=== PATIENT | female | born 1965 | race Caucasian/White ===

== ENCOUNTER → 2021-01-08 10:38 | Outpatient (BNVA) | payer OTHER, SELFPAY | PROVIDERS: PCP Internal Medicine; Visit Provider Physician Assistant | DX: S16.1XXA Strain of muscle, fascia and tendon at neck level, initial encounter (principal); S39.012A Strain of muscle, fascia and tendon of lower back, initial encounter; X58.XXXA Exposure to other specified factors, initial encounter | CPT/HCPCS: 99203 ==

== ENCOUNTER → 2021-01-14 10:01 | Outpatient (BNVA) | payer OTHER, SELFPAY | PROVIDERS: PCP Internal Medicine; Visit Provider Physician Assistant | DX: S16.1XXD Strain of muscle, fascia and tendon at neck level, subsequent encounter (principal); S39.012D Strain of muscle, fascia and tendon of lower back, subsequent encounter; X58.XXXD Exposure to other specified factors, subsequent encounter | CPT/HCPCS: 99213 ==

== ENCOUNTER 2021-09-26 21:01 | Emergency (ER) | payer OTHER, SELFPAY ==
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
[2021-09-26 22:13] VITALS: BP 130/91; PULSE 101; RESP 20; TEMP 36.5; O2SAT 98; BMI 25.0
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
[2021-09-27 00:30] VITALS: BP 119/74; PULSE 68; RESP 18; TEMP 36.6; O2SAT 100
[2021-09-27] MEDS: Ketorolac Tromethamine 30 MG/ML VIAL 15 MG IM (00:40)
== END 2021-09-27 04:11 | disposition home or self-care (01) ==
PROVIDERS: Emergency Provider Emergency Medicine Emergency Medical Services; PCP Internal Medicine
DX: S13.9XXA Sprain of joints and ligaments of unspecified parts of neck, initial encounter (principal); S33.5XXA Sprain of ligaments of lumbar spine, initial encounter; G44.309 Post-traumatic headache, unspecified, not intractable; M54.6 Pain in thoracic spine; M54.2 Cervicalgia; V43.52XA Car driver injured in collision with other type car in traffic accident, initial encounter; Y93.9 Activity, unspecified; Y92.410 Unspecified street and highway as the place of occurrence of the external cause; Y99.9 Unspecified external cause status; Z79.899 Other long term (current) drug therapy
CPT/HCPCS: 70450; 72125; 72128; 72131; 96372; 99283; 99284; J1885

== ENCOUNTER 2023-07-29 11:58 | Outpatient (AMB) | payer OTHER, SELFPAY ==
--- NOTE | 2023-07-29 12:51 | AM.OFFWIN_ITS ---
Intake Vital Signs 07/29/23 13:04 Height 5 ft 4 in Weight 135 lb BMI 23.2 BP 100/70 Blood Pressure Location Rt brachial Position Sitting Pulse 98 Pulse Source Pulse Oximeter Temp 97.1 F Temp Source Temporal Artery Scan Pulse Oximetry (%) 100 Oxygen Delivery Method Room Air Intake Visit Reasons: EP, sore throat, congestion (masked) Intake Note: Pt is here c/o chest congestion, body weakness, and on going headache. Patient Tobacco Use Status: Never used Tobacco Allergies No Known Allergies Allergy (Verified 07/29/23 13:01) Do you need a note to return to daycare/school/sports/work: No HPI HPI Comments History of Present Illness Details 58-year-old female History of diabetes and hypertension presents with fatigue, malaise, sore throat, myalgias, drycough, diffuse headache without vision changes or dizziness for the past few days. Headache feels like typical. No associated trauma. Denies chest pain, shortness of breath, nausea, vomiting, abdominal pain, fevers, chills. physical exam benign . Neurological assessment nonfocal this is likely viral illness versus viral pharyngitis versus COVID-19 vs bronchitis. No signs of retropharyngeal, peritonsillar abscess, threat to airway, epiglottitis, strep throat. Unlikely pneumonia, pulmonary embolism, ACS. headache likely secondary to viral illness, do not suspect encephalitis, meningitis, stroke. Plan supportive measures, COVID test. Educated patient on diagnosis and treatment plan, answered all question, patient verbalizes understanding. At this time patient will be discharged home, advised to return with new or worsening symptoms. Educated on worrisome signs and symptoms and when to return. At this time I feel comfortable discharge home. [facility] Medical History (Updated 09/28/21 @ 00:01 by Background Daosman) Diabetes Hypertension Review of Systems Const Details: Constitutional : No Weight loss, No Fever, No Chills, + Fatigue, +No Malaise ENT/Mouth : + sore throat, No Rhinorrhea Eyes: No Eye Pain, No Swelling, No Redness Cardiovascular : No Chest Pain, No SOB, No Dyspnea on Exertion, No Orthopnea, No Edema, No Palpitations Respiratory : No Cough, No Sputum, No Wheezing Gastrointestinal : No Nausea, No Vomiting, No Diarrhea, No Constipation, No abdominal Pain, No Hematochezia, No Melena Genitourinary : No Dysuria, No Urinary Frequency, No Hematuria, Musculoskeletal : No joint pain, + Myalgias, No Joint Swelling Skin : No Skin Lesions, No rash Neuro : No Weakness, No Numbness, No Dizziness, No Headache Psych : No Anxiety/Panic, No Depression All other systems reviewed and are negative All systems reviewed & are unremarkable except as noted in HPI and below Physical Exam Vital Signs: stable vital sign Appearance: Alert.? Oriented X3.? No acute distress.? Head: Normocephalic, atraumatic, no step-offs or deformities Eyes: Pupils equal, round and reactive to light.? Neck: Normal inspection.? Neck supple.? CVS: Normal heart rate and rhythm.? Pulses normal.? Respiratory: No respiratory distress.? Breath sounds normal.? Abdomen: Soft and nontender.? Skin: Skin warm and dry.? Normal skin color.? Normal skin turgor.? Extremities: No lower extremity edema.? No calf ttp. 5/5 strength to bilateral upper and lower extremities Neuro: Oriented X 3.? No motor deficit.? No sensory deficit. CN 2-12 intact Assessment & Plan Assessment & Plan (1) Viral illness: Code(s): B34.9 - Viral infection, unspecified Plan Take your medications as prescribed. If you were prescribed antibiotics today, it is important that you take your medication to their entirety, do not skip any doses, do not finish them early. Follow-up with your primary care provider this week. Return to the emergency department with new or worsening symptoms. Such as fevers, chills, chest pain, shortness of breath, nausea, vomiting, dizziness, headache, vision changes, lethargy In case of emergency call 911 Orders: Orders [facility] Covid-19 Ag Today B34.9 - Viral infection, unspecified Coding Level of Care Code Est Pt Level 3 (16400) Diagnoses Viral illness B34.9
[2023-07-29 13:04] VITALS: BP 100/70; PULSE 98; TEMP 36.2; O2SAT 100; BMI 23.2
== END 2023-07-29 13:25 | disposition home or self-care (01) ==
PROVIDERS: PCP Internal Medicine; Visit Provider Physician Assistant
DX: B34.9 Viral infection, unspecified (principal)
CPT/HCPCS: 99213

== ENCOUNTER 2023-07-29 13:10 | Outpatient (REF) | payer OTHER, SELFPAY ==
[2023-07-29 13:44] LABS: Binax Internal Control QC Valid; Binax Now Covid-19 Ag Negative (Negative); Binax Performed by: PAULP
== END 2023-07-29 13:11 | disposition home or self-care (01) ==
LOC: HO.HMGCLDS 13:10
PROVIDERS: Visit Provider Physician Assistant
DX: Z11.52 Encounter for screening for COVID-19 (principal)
CPT/HCPCS: 87811; C9803

== ENCOUNTER 2025-06-25 11:12 | Emergency (ER) | payer MEDICARE, OTHER, SELFPAY ==
--- NOTE | ~2025-06-25 | XR_ITS ---
EXAMINATION: XR SACRUM AND COCCYX CLINICAL INFORMATION: fall, tenderness COMPARISON: None available. TECHNIQUE: 2 views of the sacrum and 2 views of the coccyx were obtained. FINDINGS: There are no fractures. No bone, joint or soft tissue acute abnormality is demonstrated. Chronic degenerative irregularity is mild to moderate involving pubic symphysis joint. XR/XR sacrum coccyx min 2V IMPRESSION: Unremarkable examination. Electronically signed by: Dillon Huang MD 06/25/2025 12:44 PM EDT
--- NOTE | ~2025-06-25 | CT_ITS ---
EXAMINATION: CT CERVICAL SPINE WITHOUT CONTRAST CLINICAL INFORMATION: Fall with head trauma COMPARISON: None available. TECHNIQUE: Axial imaging was performed from the base of the skull through T2 without IV contrast. Coronal and sagittal reformatted images were generated from the original axial data set. ALARA: The examination used one or more of the following radiation dose reduction techniques: Automated exposure control, iterative reconstruction, and/or adjustment of mA and/or KV. DLP: 300 mGY*cm FINDINGS: There are degenerative changes with sclerosis of the dens and anterior atlas as well as marginal osteophytes. There is moderate disc space narrowing with endplate and uncovertebral osteophytes at C5-6 and C6-7. There is linear pyrophosphate deposition in the C6-7 disc. No fracture lines are identified. Soft tissues are unremarkable. CT/CT cervical spine wo IV con IMPRESSION: No acute fracture. Moderate degenerative disc disease at C5-6 and C6-7. Electronically signed by: Dillon Huang MD 06/25/2025 12:39 PM EDT
--- NOTE | ~2025-06-25 | CT_ITS ---
EXAMINATION: CT HEAD WITHOUT CONTRAST CLINICAL INFORMATION: Fall with head strike. COMPARISON: 09/27/2021 TECHNIQUE: Contiguous axial imaging was performed from the skull base to vertex without intravenous administration of contrast. This CT examination was performed using dose optimization techniques as appropriate, variously including the following: *Automated exposure control *Adjustment of mA and/or kV according to patient size (this includes techniques or standardized protocols for targeted exams where dose is matched to indication/reason for exam; i.e. extremities or head) *Use of iterative reconstruction technique FINDINGS: There is no evidence of intracranial hemorrhage or extra-axial fluid collection. There is no mass effect, or edema. No CT evidence of acute territorial infarct. Ventricles, sulci, and cisterns are normal in size and configuration for patient age. No hydrocephalus. No midline shift. Negative hyperdense MCA sign. Negative insular ribbon sign. Patchy periventricular and deep white matter hypoattenuation is consistent with mild small vessel ischemic changes. 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 Normal pituitary. Globes and orbital contents image normally. There are bilateral lens replacements. No extracranial soft tissue abnormalities. The paranasal sinuses, mastoid air cells, and tympanic cavities are normally aerated. No suspicious bony abnormalities. There are no acute fractures evident. CT/CT head/brain wo IV con IMPRESSION: No acute intracranial abnormality. Electronically signed by: Solitario Petersen MD 06/25/2025 12:38 PM EDT
[2025-06-25 11:41] VITALS: BP 118/58; PULSE 78; RESP 16; TEMP 36.3; O2SAT 96; BMI 23.5
--- NOTE | 2025-06-25 11:44 | ED.GENADULT ---
HPI - General Adult General Chief complaint: Fall Stated complaint: fall, head and back pain Related Data Home Medications ?Medication ?Instructions ?Recorded ?Confirmed bupropion HCl 75 mg tablet 75 mg PO TID 07/29/23 insulin glargine 100 unit/mL 10 unit subcut BID 07/29/23 subcutaneous solution (Lantus U-100 Insulin) lisinopril 2.5 mg tablet 2.5 mg PO DAILY 07/29/23 metformin 1,000 mg tablet 1,000 mg PO BID 07/29/23 Allergies Allergy/AdvReac Type Severity Reaction Status Date / Time mite-Dermatophagoides Allergy Intermediate Itching Verified 06/25/25 11:45 farinae, deborah (dust mite - [place]) PMFSH Past Medical History Medical History Diabetes Hypertension Social History Social History Patient Tobacco Use Status: Never used Tobacco Advance Directives: No Physical Exam ED Vital Signs: BMI result Body Mass Index 23.5 Course Course Course Narrative: This is a rapid medical exam performed by Pa Waggoner NP: Additional HPI, ROS, PE not included below will be deferred to primary provider. Patient is a 59y/o F in the emergency department with complaint of headache and lower back pain/tailbone pain after a fall yesterday. States she got up from sitting on a walker with a seat and fell backwards. She denies any dizziness or lightheadedness, states it was purely mechanical. Plan: CT head and C-spine, x-ray Patient left the emergency department before myself or any of the other clinicians could review or explain physical exam findings, test results, need or lack there of for additional testing, treatment options, or a treatment plan. Discharge Plan Discharge Clinical Impression: Headache, Fall Patient Disposition: Left W/O Completing Treatment Prescriptions: No Action lisinopril 2.5 mg tablet 2.5 mg PO DAILY insulin glargine [Lantus U-100 Insulin] 100 unit/mL solution 10 unit subcut BID metformin 1,000 mg tablet 1,000 mg PO BID bupropion HCl 75 mg tablet 75 mg PO TID Rx Instructions: administer 6 hours apart Discharge Date/Time: 06/25/25 17:16
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
--- OUTSIDE RECORDS SUMMARY | 2025-06-25 21:41 | XMS_ITS | Clinical Summary ---
Author Organization [facility] [address] [place] [address] [place] [phone] Phone Care Team Providers [employer] Worker Name Role Phone Aftab Calderon MD Primary Care Provider [phone] Allergies Active Allergy Reactions Criticality Noted Date Comments House Dust 01/25/2025 Pollen Extracts 08/11/2010 Medications pen needle, diabetic 31 gauge x 1/4 needle USE A NEW NEEDLE 4 TIMES DAILY TO CHECK BLOOD SUGAR 023 Active docusate sodium (COLACE) 100 mg capsule Take 1 capsule (100 mg total) by mouth 2 (two) times a day. 023 Active aspirin 81 mg EC tablet Take 1 tablet (81 mg total) by mouth 1 (one) time each day. 023 Active multivitamin (MULTI-DAY ORAL) Take by mouth 1 (one) time each day. Herbal Multi Vitamin Active coenzyme Q-10 30 mg capsule Take 1 capsule (30 mg total) by mouth 1 (one) time each day. Active tiZANidine (Zanaflex) 4 mg tablet Take 1 tablet (4 mg total) by mouth 4 (four) times a day if needed for muscle spasms for up to 10 days. 60 tablet 025 Active blood-glucose sensor (FreeStyle Dino 3 Plus Sensor) device Use every 15 days E11.9 6 each 2 025 Active blood-glucose ,finance mgr,con t (FreeStyle Dino 3 [place]) [facility] CGM, use with dino sensor E11.9 1 each Active lancets 30 gauge misc Check blood sugar 3 times a day or as directed 100 each Active OneTouch Ultra Test test strip Use to check BS 3 times a day 100 each 025 2025 Active blood-glucose meter kit 1 each 1 (one) time each day. 1 each 025 2025 Active lisinopriL (PRINIVIL,ZES TRIL) 5 mg tablet Take 1 tablet (5 mg total) by mouth 1 (one) time each day. 90 each 1 Active escitalopram (LEXAPRO) 10 mg tablet Take 1/2 tablet (5 mg) by mouth once daily x 1 week. Then take 1 tablet (10 mg) by mouth daily. 90 each Active metFORMIN XR (GLUCOPHAGE-X R) 500 mg 24 hr tablet Take 2 tablets twice daily with food 360 each 1 Active insulin glargine (Lantus Solostar U-100 Insulin) 100 unit/mL (3 mL) injection pen 56 units sc at bedtime, go up by 4 units every week if BS above 150. Max dose 100 units 45 mL 1 Active glucagon (Gvoke HypoPen 1-Pack) 1 mg/0.2 mL auto-injector Inject 1 mg under the skin See administration instructions. Use as needed for sever hypoglycemia 2 each 3 Active buPROPion XL (WELLBUTRIN XL) 150 mg 24 hr tablet TAKE ONE TABLET BY MOUTH EVERY MORNING 30 tablet Active insulin aspart (NovoLOG FlexPen) 100 unit/mL (3 mL) injection pen Use three times a day before meals: <100-149: 2 units, 151-200: 4 units, 201-250: 5 units, 251-300: 7units, 301-350: 8 units, 351-400: 9 units, >400: use 10 units and call me 15 mL Active insulin lispro (HumaLOG KwikPen) 100 unit/mL injection pen Use three times a day before meals: per scale <100-149: 2 units, 151-200: 4 units, 201-250: 5 units, 251-300: 7units, 301-350: 8 units, 351-400: 9 units, >400: use 10 units and call me 15 mL 11 Active dasiglucagon (Zegalogue Autoinjector) 0.6 mg/0.6 mL auto-injector Inject 0.6 mg of amoxicillin under the skin 1 (one) time each day if needed (low blood sugar). 0.6 mL 5 Active atorvastatin (LIPITOR) 40 mg tablet TAKE ONE TABLET BY MOUTH EVERY DAY 90 tablet Active atorvastatin (LIPITOR) 40 mg tablet Take 1 tablet (40 mg total) by mouth 1 (one) time each day. 90 each 1 025 2024 Discontinued buPROPion XL (WELLBUTRIN XL) 150 mg 24 hr tablet TAKE ONE TABLET BY MOUTH EVERY MORNING 90 tablet 1 2024 Discontinued insulin glargine (Lantus Solostar U-100 Insulin) 100 unit/mL (3 mL) injection pen Inject 42-46 Units under the skin 1 (one) time each day. 45 mL 1 2024 Discontinued(R eorder) metFORMIN XR (GLUCOPHAGE-X R) 500 mg 24 hr tablet Take 2 tablets twice daily with food 360 each 2024 Discontinued(R eorder) insulin lispro (HumaLOG KwikPen) 100 unit/mL injection pen Use three times a day before meals: <149: 0 units, 151-200: 2 units, 201-250: 3 units, 251-300: 5units, 301-350: 6 units, 351-400: 7 units, >400: use 8 units and call me 15 mL 2 025 2024 Discontinued(R eorder) insulin lispro (HumaLOG KwikPen) 100 unit/mL injection pen Use three times a day before meals: <100-149: 2 units, 151-200: 4 units, 201-250: 5 units, 251-300: 7units, 301-350: 8 units, 351-400: 9 units, >400: use 10 units and call me 15 mL 2 025 2024 Discontinued(F ormulary change) Active Problems Problem Noted Date Diagnosed Date Moderate episode of recurren t major depressive disorder ([facility] V24, [facility] V28) 10/16/2021 DDD (degenerative disc disease), cervical 2019 Diabetic polyneuropathy asso ciated with type 2 diabetes mellitus ([facility] V24, [facility] V28) 04/28/2019 Breast ductal hyperplasia, atypical 01/24/2015 Diverticulosis 10/31/2013 Hyperlipidemia 02/01/2012 Overview (12/18/2023): 10/18/14- Persistently elevated LFT's, holding statin for re-evaluation Hypertension 02/01/2012 Type II or unspecified type diabetes mellitus with renal manifestations, uncontrolled(250.42) ([facility] V24, [facility] V28) 02/01/2012 Encounters Date Type Department Care Team Description 06/25/2025 Nurse Triage Adult Medicine [address] [phone] Aftab Calderon MD 06/14/2025 Telephone Endocrinology [address] [phone] Alison Canales PA 06/14/2025 Telephone Endocr[address] [phone] Alison Canales PA 06/12/2025 8:00 AM EDT Office Visit [address] [phone] Alison Canales PA Type II or unspecified type diabetes mellitus with renal manifestations, uncontrolled(250.42) ([facility] V24, [facility] V28) (Primary Dx); Hyperlipidemia, unspecified hyperlipidemia type; Primary hypertension 06/12/2025 Telephone Endocrinology [address] [phone] Alison Canales PA 05/01/2025 1:00 PM EDT Office Visit [facility] [place] [address] [phone] Violetta Saba PA Primary hypertension (Primary Dx); Hyperlipidemia, unspecified hyperlipidemia type; Type II or unspecified type diabetes mellitus with renal manifestations, uncontrolled(250.42) ([facility] V24, [facility] V28); Moderate episode of recurrent major depressive disorder ([facility] V24, [facility] V28); Anxiety from Last 3 Months Immunizations Name Administration Dates Next Due Influenza Quadravalent, MDCK , 0.5ml, preservative free (Flucelvax) 6mo and older 07/22/2023 Influenza trivalent, 0.5mL, preservative free (Fluarix; FluLaval; Fluzone) ages 6mo and older (Afluria) 3 years and older 06/25/2016,08/08/2015 Influenza trivalent, with pr eservative (Fluzone; Afluria) 6mo and older 08/10/2018,08/08/2015,08/11/2010 PPD Test 05/21/2015,07/07/2011 [employer] SARS-CoV-2 COVID-19, mRNA, LNP-S, preservative free 10/13/2021 Pneumococcal polysaccharide 23 valent (Pneumovax 23) 2yo and older 10/18/2014 Td Tetanus diptheria (Tdvax) 7yo and older 04/28 Tdap Tetanus diptheria acell ular pertussis (Boostrix; Adacel) 7yo and older 11/13/2011 Zoster recombinant (Shingrix ) 19yo and older 08/10/2018,04/23/2018 Surgical History Surgery Date Site/Laterality Comments TUBAL LIGATION PROCEDURE: HISTORICAL TUBAL LIGATION WISDOM TOOTH EXTRACTION PROCEDURE: HISTORICAL WISDOM TEETH EXTRACTION CHOLECYSTECTOMY PROCEDURE: HISTORICAL CHOLECYSTECTOMY; COMMENT: 10/2010 OTHER SURGICAL HISTORY 07/21 PROCEDURE: HYSTEROSCOPY, DIAGNOSTIC; COMMENT: polypectomy BREAST SURGERY 2014 Right PROCEDURE: [place] UNLISTED PROCEDURE BREAST; COMMENT: b9 BREAST BIOPSY 2014 Right PROCEDURE: BX BREAST; PERC NEEDLE CORE W/IMAG GUID; COMMENT: b9 Medical History Medical History Date Comments Depression DX:Depression Type II or unspecified type diabetes mellitus with unspecified complication, not stated as uncontrolled DX:Type II or unspecified t ype diabetes mellitus with unspecified complication, not stated as uncontrolled Unspecified essential hypertension DX:Unspecified essential hypertension Family History Medical History Relation Name Comments No Known Problems Aunt No Known Problems Brother Bipolar disorder Daughter Hypertension Father patient does no t know him well, unsure No Known Problems Maternal Grandfather Cataracts Maternal Grandmother Diabetes Maternal Grandmother htn, [place] Glaucoma Maternal Grandmother Cataracts Mother Diabetes Mother Glaucoma Mother Heart attack Mother of massiv e heart attack Hypertension Mother [place] Other Dermatological Disorders Mother skin cancer on neck .... specifics unknown (small scar) Breast cancer Other mat cousin No Known Problems Paternal Grandfather No Known Problems Paternal Grandmother No Known Problems Sister No Known Problems Uncle Blindness Neg Hx Colon cancer Neg Hx Macular degeneration Neg Hx Ovarian cancer Neg Hx Strabismus Neg Hx Relation Name Status Comments Aunt Brother Daughter Father Maternal Grandfather Maternal Grandmother Mother (Age 62) Other mat cousin Alive Paternal Grandfather Paternal Grandmother Sister Uncle Social History Tobacco Use Types Packs/Day Years [...] on file Sexual Orientation Not on file Obstetrics History Para Term AB IAB SAB Ectopic Multiple Livin g Live Births 3 3 3 3 Date Outcome GA Total Labor Labor/2nd/3rd Weight Sex Type Anes PTL Lu A1 A5 Name Clin Term Term Term Last Filed Vital Signs Vital Sign Reading Time Taken Comments Blood Pressure 99/64 06/12/2025 9:22 AM EDT Pulse 85 06/12/2025 9:22 AM EDT Temperature 35.6 C (96 F) 06/12/2025 9:22 AM EDT Respiratory Rate 14 05/01/2025 1:12 PM EDT Oxygen Saturation 96% 05/01/2025 1:12 PM EDT Inhaled Oxygen Concentration - - Weight 63 kg (139 lb) 06/12/2025 9:22 AM EDT Height 162.6 cm (5' 4 ) 06/12/2025 9:22 AM EDT Body Mass Index 23.86 06/12/2025 9:22 AM EDT Plan of Treatment Upcoming Encounters Date Type Department Care Team (Late st Contact Info) Description 07/24/2025 2:00 PM EDT Office Visit Endocrinology - [place] [address] [place] [phone] Alison Canales PA [address] [place] [address] Health Maintenance Due Date Last Done Comments Diabetes: Annual Foot Exam 1976 Hepatitis B Vaccines (1 of 3 - 19+ 3-dose series) 1985 Cervical Cancer Screening: HPV 1987 HIV Screening 09/18/2022 Hepatitis C Screening 09/18/2022 Medicare Annual Wellness Visit 09/18/2022 Social Influencers of Health Screening 09/18/2022 Colorectal Cancer Screening: Colonoscopy 09/13/2023 09/13/2013 Depression Screening 10/11/2024 Influenza Vaccine (#1) 2025 , 07/22/2023, 08/10/2018, Additional history exists Diabetes: Blood Sugar Control Test (HGBA1C) 10/26/2025 04/25/2025, 01/24/2025, 10/25/2024, Additional history exists Diabetes: Annual Urine Albumin-Creatinine Ratio (uACR) 01/24/2026 01/24/2025, 11/18/2022 Diabetes: Annual GFR (Glomerular Filtration Rate) 01/24/2026 01/24/2025, 10/25/2024, 04/27/2024 Hypertension/CHF/CAD Annual BMP Blood Test 01/24/2026 01/24/2025, 10/25/2024, 04/27/2024 Diabetes: Annual Retina Eye Exam 03/14/2026 03/14/2025, 03/15/2023 Breast Cancer Screening 02/21/2027 02/22/20 25, 03/09/2024, 03/09/2024, Additional history exists Cholesterol Screening (Lipid Panel) 01/24/2030 01/24/2025, 04/27/2024, 11/17/2022 DTaP,Tdap,and Td Vaccines (3 - Td or Tdap) 04/28/2032 04/28/2022, 11/13/2011 Zoster Vaccines Completed 08/10/2018, 04/23/2018 COVID-19 Vaccine Completed 09/28/2024, , 10/13/2021, Additional history exists Pneumococcal Vaccine: 50+ Years Completed 02/20/2025, 10/18/2014 HIB Vaccines Aged Out No longer eligi ble based on patient's age to complete this topic HPV Vaccines Aged Out No longer eligi ble based on patient's age to complete this topic Hepatitis A Vaccines Aged Out No long er eligible based on patient's age to complete this topic IPV Vaccines Aged Out No longer eligi ble based on patient's age to complete this topic MMR Vaccines Aged Out No longer eligi ble based on patient's age to complete this topic Meningococcal ACWY Vaccine Aged Out N o longer eligible based on patient's age to complete this topic Meningococcal B Vaccine Aged Out No l onger eligible based on patient's age to complete this topic RSV Immunization Patients Under 20 months Aged Out No longer eligible based on patient's age to complete this topic Varicella Vaccines Aged Out No longer eligible based on patient's age to complete this topic Goals Goal Patient Goal Type Associated Problems [...] IADL's. LTG's 12 visits General Yes [place], PT Note: Pt will be Independent and compliant with final HEP. Pt will I demonstrate proper technique for sup<->sit transfers in 5/5 trials. Pt will report a 75% decrease in anterior R groin pain when walking for work or exercise for general health. Pt will report walking tolerance of @ [employer] for work and household IADL's. Procedures Procedure Name Priority Date/Time Associated Diagnosis Comments HEMOGLOBIN A1C Routine 04/25/2025 1:38 PM EDT Type II or unspecified type diabetes mellitus with renal manifestations, uncontrolled(250.42 ) ([facility] V24, [facility] V28) EXTERNAL DIABETIC RETINA EYE EXAM 03/14/2025 MG MAMMO DIGITAL SCREENING W GONZALEZ BILAT Routine 02/21/2025 8:58 AM EDT Encounter for screening mammogram for breast cancer MICROALBUMIN CREATININE URINE RATIO Routine 01/24/2025 1:54 PM EDT Type II or unspecified type diabetes mellitus with renal manifestations, uncontrolled(250.42 ) ([facility] V24, [facility] V28) COMPREHENSIVE METABOLIC PANEL Routine 01/24/2025 1:53 PM EDT Encounter for long-term (current) use of medications LIPID PANEL WITH REFLEX TO DIRECT LDL Routine 01/24/2025 1:53 PM EDT Hypercholesterolemi a from Last 3 Months or Most Recently Relevant to Health Maintenance Results * (ABNORMAL) Hemoglobin A1c (04/25/2025 1:38 PM EDT) Hemoglobin A1C 11.1(H) <6.5 % LAB CHEMISTRY METHOD 04/25/2025 8:13 PM EDT [facility] Mean Bld Glu Estim. 272 mg/dL LAB CHEMISTRY METHOD 04/25/2025 8:13 PM EDT [facility] Blood Venous blood specimen / Unknown Venipuncture / Unknown 04/25/2025 1:38 PM EDT 04/25/2025 1:38 PM EDT us Merary [facility] LAB BLOOD ORDERABLES Final Resul t [facility]) [facility] [address] [place] [address], [place] [phone] * External Diabetic Retina Eye Exam Report (03/14/2025) Anatomical Region Laterality Modality Ultrasound us Provider [facility] IMG US PROCEDURES Final Result * MG Mammo Digital Screening w Gonzalez bilat (02/21/2025 8:58 AM EDT) Anatomical Region Laterality Modality Breast Bilateral Mammography 02/21/2025 4:44 PM EDT Impressions 02/21/2025 4:54 PM EDT No mammographic evidence of malignancy. BREAST DENSITY: C - The breasts are heterogeneously dense which may obscure small masses. BI-RADS CATEGORY: 2 - BENIGN RECOMMENDATION: Screening bilateral mammogram is recommended in 1 year. MAMMO LOCATION: [facility], [address] [place] [address], [id number], . -------- FINAL REPORT -------- Dictated By: Kimberly sAhby Dictated Date: 02/21/2025 16:44 ET Assigned Physician: Kimberly Ashby Reviewed and Electronically Signed By: Kimberly Ashby Signed Date: 02/21/2025 16:54 ET Workstation ID: [id number] Transcribed By: Self Edit Transcribed Date: 02/21/2025 16:44 ET Narrative 02/21/2025 4:54 PM EDT EXAM: Screening Mammogram CLINICAL: 59 years old, Female, routine annual exam. History of a right excisional biopsy in 2014 for atypical ductal hyperplasia. COMPARISON: 02/08/2024 and as far back as 12/26/2020 TECHNIQUE: Bilateral MLO and CC views were obtained digitally with 3-D mammogram (digital breast tomosynthesis). Computer-aided detection was utilized in evaluation of this exam (CAD). FINDINGS: Stable postsurgical distortion in the upper right breast near the 12 o'clock position. No new suspicious mass, architectural distortion, or suspicious calcifications. Procedure Note Kimberly Ashby MD - 02/21/2025 EXAM: Screening Mammogram CLINICAL: 59 years old, Female, routine annual exam. History of a rightexcisional biopsy in 2014 for atypical ductal hyperplasia. COMPARISON: 02/08/2024 and as far back as 12/26/2020 TECHNIQUE: Bilateral MLO and CC views were obtained digitally with 3-Dmammogram (digital breast tomosynthesis). Computer-aided detection wasutilized in evaluation of this exam (CAD). FINDINGS: Stable postsurgical distortion in the upper right breast near the 12o'clock position. No new suspicious mass, architectural distortion, orsuspicious calcifications. IMPRESSION: No mammographic evidence of malignancy. BREAST DENSITY: C - The breasts are heterogeneously dense which mayobscure small masses. BI-RADS CATEGORY: 2 - BENIGN RECOMMENDATION: Screening bilateral mammogram is recommended in 1 year. MAMMO LOCATION: [facility], [address] [place] [address], [id number], . -------- FINAL REPORT -------- Dictated By: Kimberly Ashby Dictated Date: 02/21/2025 16:44 ET Assigned Physician: Kimberly Ashby Reviewed and Electronically Signed By: Kimberly Ashby Signed Date: 02/21/2025 16:54 ET Workstation ID: [id number] Transcribed By: Self Edit Transcribed Date: 02/21/2025 16:44 ET Aftab Calderon MD IMG BI PROCEDURES Final Result * (ABNORMAL) Microalbumin creatinine urine ratio (01/24/2025 1:54 PM EDT) Creatinine, Urine 113.0 mg/dL LAB CHEMISTRY METHOD 01/24/2025 6:54 PM EDT [facility] Microalb, Ur 39.0(H) 0.0 - 29.0 mg/L LAB CHEMISTRY METHOD 01/24/2025 6:54 PM EDT [facility] Microalb/Crea t Ratio 35(H) <30 mg/g creat LAB CHEMISTRY METHOD 01/24/2025 6:54 PM EDT [facility] Urine Urine specimen obtained by clean catch procedure / Unknown Non-blood Collection / Unknown 01/24/2025 1:54 PM EDT 01/24/2025 1:54 PM EDT Aftab Calderon MD LAB URINE ORDERABLES Final Resu lt Performing Organization Address City/[facility]/ZIP Co de Phone Number [facility] [address] [place] [address], [place] [phone] * (ABNORMAL) Lipid panel with reflex to direct LDL (01/24/2025 1:53 PM EDT) Cholesterol 225(H) 0 - 200 mg/dL LAB CHEMISTRY METHOD 01/24/2025 10:43 PM EDT [facility] Triglycerides 409(H) 0 - 150 mg/dL LAB CHEMISTRY METHOD 01/24/2025 10:43 PM EDT [facility] HDL 46 >=40 mg/dL LAB CHEMISTRY METHOD 01/24/2025 10:43 PM EDT [facility] LDL Calculated 97 0 - 100 mg/dL LAB CHEMISTRY METHOD 01/24/2025 10:43 PM EDT [facility] Comment:Unable to calculate when triglycerides >400 mg/dL. VLDL Cholesterol [place] 81.8 mg/dL LAB CHEMISTRY METHOD 01/24/2025 10:43 PM EDT [facility] Comment:Unable to calculate when triglycerides >400 mg/dL. Non HDL Chol. (LDL+VLDL) 179(H) <145 mg/dL LAB CHEMISTRY METHOD 01/24/2025 10:43 PM EDT [facility] Comment:Unable to calculate when triglycerides >400 mg/dL. Chol/HDL Ratio 4.9(H) 0.0 - 4.4 LAB CHEMISTRY METHOD 01/24/2025 10:43 PM EDT [facility] Blood Venous blood specimen / Unknown Venipuncture / Unknown 01/24/2025 1:53 PM EDT 01/24/2025 1:53 PM EDT us Aftab Calderon MD LAB BLOOD ORDERABLES Final Resu lt Performing Organization Address [facility]/ZIP Co de Phone Number [facility] [address] [place] [address], [place] [phone] * (ABNORMAL) Comprehensive metabolic panel (01/24/2025 1:53 PM EDT) Sodium 129(L) 133 - 145 mmol/L LAB CHEMISTRY METHOD 01/24/2025 10:42 PM [facility] Potassium 4.3 3.5 - 5.5 mmol/L LAB CHEMISTRY METHOD 01/24/2025 10:42 PM [facility] Chloride 94(L) 96 - 110 mmol/L LAB CHEMISTRY METHOD 01/24/2025 10:42 PM [facility] CO2 25 21 - 32 mmol/L LAB CHEMISTRY METHOD 01/24/2025 10:42 PM [facility] Anion Gap 10 3 - 11 LAB CHEMISTRY METHOD 01/24/2025 10:42 PM [facility] Glucose 347(H) 70 - 100 mg/dL LAB CHEMISTRY METHOD 01/24/2025 10:42 PM [facility] BUN 12 5 - 25 mg/dL LAB CHEMISTRY METHOD 01/24/2025 10:42 PM [facility] Creatinine 1.02 0.50 - 1.10 mg/dL LAB CHEMISTRY METHOD 01/24/2025 10:42 PM [facility] eGFR 64 >=60 mL/min/1. 73m2 LAB CHEMISTRY METHOD 01/24/2025 10:42 PM [facility] Comment:Calculation based on the Chronic Kidney Disease Epidemiology Collaboration (CKD-EPI) equation refit without adjustment for race. BUN/Creatinine Ratio 11.8 LAB CHEMISTRY METHOD 01/24/2025 10:42 PM [facility] Calcium 9.6 8.5 - 10.5 mg/dL LAB CHEMISTRY METHOD 01/24/2025 10:42 PM [facility] AST (SGOT) 22 10 - 42 unit/L LAB CHEMISTRY METHOD 01/24/2025 10:42 PM [facility] ALT (SGPT) 42 10 - 60 unit/L LAB CHEMISTRY METHOD 01/24/2025 10:42 PM EDT [facility] Alkaline Phosphatase 125(H) 42 - 121 unit/L LAB CHEMISTRY METHOD 01/24/2025 10:42 PM EDT [facility] Total Protein 7.7 6.0 - 8.0 g/dL LAB CHEMISTRY METHOD 01/24/2025 10:42 PM EDT [facility] Albumin 4.0 3.2 - 5.0 g/dL LAB CHEMISTRY METHOD 01/24/2025 10:42 PM EDT [facility] Total Bilirubin 0.8 0.0 - 1.4 mg/dL LAB CHEMISTRY METHOD 01/24/2025 10:42 PM EDT [facility] Blood Venous blood specimen / Unknown Venipuncture / Unknown 01/24/2025 1:53 PM EDT 01/24/2025 1:53 PM EDT us Aftab Calderon MD LAB BLOOD ORDERABLES Final Resu lt [facility] [address] [place] [address], from Last 3 Months or Most Recently Relevant to Health Maintenance Insurance [employer] MEDICARE [employer]VANTAGE MEDICAID - [place] Care Teams [employer] Utility Worker Relationship Specialty Start Date End Date Aftab Calderon MD [address] [place] [phone] PCP - General Internal Medicine 08/15/21
--- OUTSIDE RECORDS SUMMARY | 2025-06-25 21:41 | XMS_ITS ---
Author Name [facility] Organization Unknown Care Team Organization Name Specialty Phone Email Start Date End Da te [facility] YUSUF CHURCH Primary Care 08/18/2022 4
== END 2025-06-25 17:16 | disposition left against medical advice (07) ==
LOC: HO.ED 17:13
PROVIDERS: Emergency Provider Emergency Medicine; PCP Internal Medicine
DX: R51.9 Headache, unspecified (principal); M54.9 Dorsalgia, unspecified
CPT/HCPCS: 70450; 72125; 72220; 99281; 99283

== ENCOUNTER → 2025-06-25 11:47 | Outpatient (BNV) | payer OTHER, SELFPAY | PROVIDERS: PCP Internal Medicine; Visit Provider Radiology Diagnostic Radiology | DX: M50.323 Other cervical disc degeneration at C6-C7 level (principal); M85.30 Osteitis condensans, unspecified site | CPT/HCPCS: 72125; 72220 ==